=== PATIENT | male | born 1990 | race African-American/Black ===

== ENCOUNTER 2021-11-24 12:53 | Emergency (ER) | payer OTHER, SELFPAY ==
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
[2021-11-24 13:26] VITALS: BP 136/76; PULSE 75; RESP 18; TEMP 36.7; O2SAT 100
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
== END 2021-11-24 14:57 | disposition home or self-care (01) ==
PROVIDERS: Emergency Provider Nurse Practitioner
DX: S89.91XA Unspecified injury of right lower leg, initial encounter (principal); V89.2XXA Person injured in unspecified motor-vehicle accident, traffic, initial encounter
CPT/HCPCS: 73564; 99203; G0463